=== PATIENT | female | born 2000 | race Caucasian/White ===

== ENCOUNTER 2024-01-27 10:00 | Outpatient (RCR) | payer OTHER | END 2024-02-03 | LOC: WSPT | DX: M54.50 Low back pain, unspecified (principal) ==

== ENCOUNTER 2024-04-13 13:30 | Outpatient (RCR) | payer OTHER | END 2024-05-05 | disposition home or self-care (01) | LOC: WSPT | DX: M54.50 Low back pain, unspecified (principal) ==